=== PATIENT | male | born 1990 | race Caucasian/White ===

== ENCOUNTER 2019-01-17 21:01 | Emergency (ER) | payer SELFPAY ==
[~2019-01-17] VITALS: Ht 205.7 cm; Wt 99.8 kg
[2019-01-17] MEDS ORDERED: AUGMENTIN 875 MG TAB (AMOXICILLIN/CLAVULANATE) PO STA (21:16)
[2019-01-17] MEDS ORDERED: cefTRIAXone 1,000 MG/2.86 ml vial (IM ONLY) IM STA (21:16)
--- NOTE | 2019-01-17 21:27 | ED Lower Extremity ---
General Chief Complaint: Lower Extremity Stated Complaint: LEFT FOOT PAIN-INFECTED Source: patient, family History of Present Illness Date Seen by Provider: Jan 17, 2019 Time Seen by Provider: 21:04 Initial Comments 28-year-old male presenting with complaints of left heel pain. He was working under a family member's house and some sewage. This was yesterday. He was working on a broken sewage pipe. He did not feel like he stepped on anything or had anything happen to his foot did he was having some mild pain last night and there were some increased heat to the heel of his left foot. Today he's had increasing pain throughout the day and then tonight he has had some foul- smelling drainage from the left heel. There is some redness that is starting to spread up his heel. He denies having any fever or chills. He does not have any history of MRSA. Allergies and Home Medications Allergies Coded Allergies: No Known Drug Allergies (Unverified , 01/17/19) Home Medications Amoxicillin/Potassium Clav 1 Each Tablet, 1 EACH PO BID Prescribed by: DUKE CARPENTER on 01/17/192146 Ibuprofen 800 Mg Tablet, 800 MG PO Q8H PRN for PAIN Prescribed by: DUKE CARPENTER on 01/17/192146 Patient Home Medication List Home Medication List Reviewed: Yes Review of Systems Constitutional: see HPI; No chills, No fever, No malaise EENTM: no symptoms reported Respiratory: no symptoms reported Cardiovascular: no symptoms reported Gastrointestinal: no symptoms reported Genitourinary: no symptoms reported Musculoskeletal: other (pain to the left heel) Skin: see HPI, change in color Past Nvlwcjd-Mggnhb-Unhxsm Hx Past Med/Social Hx: Reviewed Nursing Past Med/Soc Hx Patient Social History Recent Foreign Travel: No Contact w/Someone Who Travel: No Immunizations Up To Date Tetanus Booster (TDap): Less than 5yrs Past Medical History Surgeries: No Asthma, Tuberculosis Cardiac: No Neurological: No Lung (Small Cell) Physical Exam Vital Signs Vital Signs - First Documented 01/17/19 01/17/19 21:15 22:23 Temp 97.2 Pulse 109 Resp 16 B/P (MAP) 148/99 (115) Pulse Ox 99 O2 Delivery Room Air Capillary Refill : Height, Weight, BMI Height: '" Weight: lbs. oz. kg; BMI Method: General Appearance: WD/WN, no apparent distress Cardiovascular: normal peripheral pulses Feet: left foot pain, left foot soft tissue tenderness, left foot swelling, left foot other (red tender papule to posterior lateral heel on left foot with redness streaking up the heel towards the ankle. There is small amount of serous fluid that can be expressed from the papule) Neurologic/Tendon: normal sensation, normal motor functions, normal tendon functions Neurologic/Psychiatric: alert, oriented x 3 Skin: normal color, warm/dry Procedures/Interventions I&D : Site: left lateral heel Blade Size: 15 Progress After obtaining informed consent the area was prepped with chlorhexidine. Then using a 27-gauge needle one percent plain lidocaine was injected to obtain anesthesia. The area was then incised with a 15 blade scalpel. There was a scant amount of serosanguineous fluid that was obtained and cultured. The culture swab was sent for culture. The wound was then cleaned and dressed with triple antibiotic and sterile dressing. He was counseled on follow-up and return precautions. Advised to keep the wound and foot elevated. Progress/Results/Core Measures Results/Orders My Orders Orders - DUKE CARPENTER MD Lidocaine 1% Inj 20 Ml (Xylocaine 1% Inj (01/17/19 21:30) Amoxicillin/Clavulanate Tablet (Augmenti (01/17/19 21:16) Ceftriaxone For Im Use (Rocephin For Im (01/17/19 21:16) Lidocaine 1% Inj 20 Ml (Xylocaine 1% Inj (01/17/19 21:30) Wound Culture (01/17/19 21:16) Medications Given in ED Current Medications Medications Dose Ordered Sig/Lucho Route Start Time Stop Time Status Last Admin Dose Admin Lidocaine HCl 2.1 ml ONCE ONCE INJ 01/17/19 21:30 18 21:31 DC 01/17/19 21:30 2.1 ML Lidocaine HCl 20 ml ONCE ONCE INJ 01/17/19 21:30 01/17/19 21:31 DC 01/17/19 21:31 20 ML Vital Signs/I&O 01/17/19 01/17/19 21:15 22:23 Temp 97.2 97.2 Pulse 109 109 Resp 16 16 B/P (MAP) 148/99 (115) 148/99 (115) Pulse Ox 99 O2 Delivery Room Air Progress Progress Note : Progress Note will give Rocephin IM for antibiotics. Start on Augmentin since the painful infected area started after having his feet in sewage yesterday. Will attempt an I & D of the area to see if fluid can be obtained for culture. Departure Impression Primary Impression: Abscess or cellulitis of heel Disposition: HOME, SELF-CARE Condition: Stable Departure-Patient Inst. Decision time for Depature: 22:10 Patient Instructions: Cellulitis (Skin Infection), Adult (DC), Wound Incision and Drainage (DC) Add. Discharge Instructions: Take antibiotics until gone. Follow up with [facility] provider or Provider of your choice to follow up about the wound and culture results. If worsens over the weekend return to the ER as you may need IV antibiotics. If you see redness going up your leg, Fever over 101 F, or having increasing pain and swelling to the foot instead of improving by Monday then return for evaluation. Try to elevate your foot to help with swelling and pain Use Ibuprofen 800 mg every 8 hours as needed for pain Use ice 20 to 30 minutes every few hours as needed to help with pain for next 24 hours. Then you may alternate with heat or just use heat to help with the area of infection. All discharge instructions reviewed with patient and/or family. Voiced understanding. Scripts Ibuprofen (Ibuprofen) 800 Mg Tablet 800 MG PO Q8H PRN for PAIN for 10 Days, #30 TAB 0 Refills Prov: DUKE CARPENTER MD 01/17/19 Amoxicillin/Potassium Clav (Augmentin 875-125 Tablet) 1 Each Tablet 1 EACH PO BID for 10 Days, #20 TAB 0 Refills Prov: DUKE CARPENTER MD 01/17/19 DUKE CARPENTER MD Jan 17, 2019 21:27
[2019-01-17] MEDS ORDERED: LIDOCAINE 1% INJ 20 ML 20 ML VIAL INJ ONE ×2 (21:30)
[2019-01-17] MEDS ORDERED: AMOX-358 PO (21:47)
[2019-01-17] MEDS ORDERED: IBUP-1780 PO (21:47)
[2019-01-17 22:23] VITALS: BP 148/99
== END 2019-01-17 22:18 | disposition home or self-care (01) ==
LOC: EDUNIT# 21:01 → ER FS 21:03
DX: L02.612 Cutaneous abscess of left foot (principal); L03.116 Cellulitis of left lower limb; J45.909 Unspecified asthma, uncomplicated
CPT/HCPCS: 87070; 87077; 87186; 87205

== ENCOUNTER 2019-09-01 10:49 | Emergency (ER) | payer SELFPAY ==
[~2019-09-01] VITALS: Ht 199 cm; Wt 105.9 kg
[~2019-09-01 10:49] MED LIST: AMOX-358 PO; IBUP-1780 PO
--- NOTE | 2019-09-01 11:02 | ED GU-Male ---
General Chief Complaint: Male Reproductive Stated Complaint: TESTICULAR PAIN Source: patient, other Exam Limitations: no limitations History of Present Illness Date Seen by Provider: Sep 01, 2019 Time Seen by Provider: 10:48 Initial Comments Patient presents to ER by private conveyance with chief complaint of left testicular pain swelling discoloration for the past 3 weeks. He's had some subjective fevers and chills. No discharge dysuria or dyspareunia. No diarrhea or constipation. No history of testicular problems. He is on Vraylar and lithium for bipolar followed by [facility] in [place]. He is not having any nausea. He did take some ibuprofen about 3 hours ago and gave him mild relief of pain. He rates it as a 9 out of 10. He is afraid he has testicular torsion. He has a history of herpes but no Allergies and Home Medications Allergies Coded Allergies: No Known Drug Allergies (Unverified , 01/17/19) Home Medications Amoxicillin/Potassium Clav 1 Each Tablet, 1 EACH PO BID Prescribed by: DUKE CARPENTER on 01/17/192146 Ibuprofen 800 Mg Tablet, 800 MG PO Q8H PRN for PAIN Prescribed by: DUKE CARPENTER on 01/17/192146 Patient Home Medication List Home Medication List Reviewed: Yes Review of Systems Review of Systems Constitutional: No chills, No diaphoresis EENTM: No ear discharge, No ear pain Respiratory: No cough, No short of breath Cardiovascular: No chest pain, No edema Gastrointestinal: No abdominal pain, No constipation, No diarrhea Genitourinary: see HPI All Other Systemes Reviewed Negative Unless Noted: Yes Past Mwvekii-Lrrxeg-Suprwv Hx Patient Social History Alcohol Use: Denies Use Recreational Drug Use: No Immunizations Up To Date Tetanus Booster (TDap): Less than 5yrs Past Medical History Surgeries: No Asthma, Tuberculosis Cardiac: No Neurological: No Lung Physical Exam Vital Signs Capillary Refill : Height, Weight, BMI Height: 6'9.00" Weight: 220lbs. oz. 99.311224is; BMI Method:Stated General Appearance: WD/WN, mild distress HEENT: PERRL/EOMI, pharynx normal Cardiovascular: normal peripheral pulses, regular rate, rhythm Respiratory: no respiratory distress, no accessory muscle use Genital/Rectal: other (normal penis exam without pain or discharge. Left ST slightly swollen, erythematous without tumor nodule. Right testes unremarkable. Inguinal canals are unremarkable.) Neurologic/Psychiatric: alert, normal mood/affect Skin: normal color, warm/dry Progress/Results/Core Measures Suspected Sepsis SIRS Temperature: Pulse: Respiratory Rate: Blood Pressure / Mean: Results/Orders Lab Results Laboratory Tests Test 09/01/19 11:00 Range/Units Urine Color YELLOW Urine Clarity CLEAR Urine pH 6.5 5-9 Urine Specific [place] 1.020 1.016-1.022 Urine Protein NEGATIVE NEGATIVE Urine Glucose (UA) NEGATIVE NEGATIVE Urine Ketones NEGATIVE NEGATIVE Urine Nitrite NEGATIVE NEGATIVE Urine Bilirubin NEGATIVE NEGATIVE Urine Urobilinogen 0.2 < = 1.0 MG/DL Urine Leukocyte Esterase 1+ H NEGATIVE Urine RBC (Auto) TRACE H NEGATIVE Urine RBC RARE /HPF Urine WBC 25-50 H /HPF Urine Crystals NONE /LPF Urine Bacteria TRACE /HPF Urine Casts NONE /LPF Urine Mucus MODERATE H /LPF Urine Culture Indicated YES My Orders Orders - DIANNA CROCKER Ua Culture If Indicated (09/01/19 11:02) Neis Robert Dna Urine Test (09/01/19 11:02) Chlamydia Trachomatis Urine (09/01/19 11:02) Urine Culture (09/01/19 11:00) Ceftriaxone For Im Use (Rocephin For Im (09/01/19 11:30) Azithromycin Tablet (Zithromax Tablet) (09/01/19 11:30) Lidocaine 1% Inj 20 Ml (Xylocaine 1% Inj (09/01/19 11:30) Ketorolac Injection (Toradol Injection) (09/01/19 11:30) Vital Signs/I&O Capillary Refill : Progress Note : Time: 11:15 Progress Note At 3 weeks a testicular torsion is less likely. Infection versus tumor more likely. We do not have ultrasound [facility]. The nearest ultrasound is in [facility]. We have offered that. The patient says he would prefer to wait till tomorrow and this is acceptable. We'll set him up outpatient and he can follow-up with Deana Mcclure, primary care at [facility]. Plan to give him Rocephin and azithromycin and put him out on doxycycline. Toradol for pain. Departure Impression Primary Impression: Orchitis of left testicle Disposition: 01 HOME, SELF-CARE Condition: Stable Departure-Patient Inst. Decision time for Depature: 11:20 Referrals: NO,LOCAL PHYSICIAN (PCP/Family) Primary Care Physician Patient Instructions: Epididymitis Add. Discharge Instructions: Heat and elevation may be helpful. Tylenol 1000 mg every 8 hours as needed for pain. Ibuprofen 800 mg every 8 hours as needed for pain. Hydrocodone one tablet every 6 hours as needed for pain. Doxycycline 1 tablet with a meal twice a day for the next 10 days. Follow-up with an outpatient ultrasound tomorrow. Follow-up with your primary care doctor by calling for results this week. All discharge instructions reviewed with patient and/or family. Voiced understanding. Scripts Doxycycline Hyclate (Doxycycline Hyclate) 100 Mg Tablet 100 MG PO BID for 10 Days, #20 TAB 0 Refills Prov: DIANNA CROCKER 09/01/19 Hydrocodone Bit/Acetaminophen (Hydrocodone/Acetaminophen 5/325mg Tablet) 1 Tab Tab 1 EACH PO Q4-6HR PRN for PAIN-MODERATE MDD 10 for 3 Days, #14 TAB 0 Refills Prov: DIANNA CROCKER 09/01/19 Work/School Note: Work Release Form Date Seen in the Emergency Department: Sep 01, 2019 Return to Work: Sep 03, 2019 Restrictions: No Restrictions Copy Copies To 1: MARJORIE LEE TITUS J Sep 01, 2019 11:02 POS
[2019-09-01 11:14] LABS: BACTERIA,URINE TRACE /HPF; BILIRUBIN,URINE NEGATIVE (NEGATIVE); CLARITY,URINE CLEAR; COLOR,URINE YELLOW; GLUCOSE, URINE (UA) NEGATIVE (NEGATIVE); KETONES,URINE NEGATIVE (NEGATIVE); LEUKOCYTE ESTERASE ,URINE 1+ (NEGATIVE); NITRITE,URINE NEGATIVE (NEGATIVE); PH,URINE 6.5 (5-9); PROTEIN,URINE NEGATIVE (NEGATIVE); RBC,URINE RARE /HPF; WBC,URINE 25-50 /HPF
[2019-09-01] MEDS ORDERED: DOXY100T2 PO (11:22)
[2019-09-01] MEDS ORDERED: ACHD5005 PO (11:22)
[2019-09-01 11:27] VITALS: BP 162/90
[2019-09-01] MEDS ORDERED: cefTRIAXone 500 MG/1.43 ML vial (IM ONLY) IM ONE ×2 (11:30→11:45)
[2019-09-01] MEDS ORDERED: LIDOCAINE 1% INJ 20 ML 20 ML VIAL INJ ONE ×2 (11:30→11:45)
[2019-09-01] MEDS ORDERED: KETOROLAC 60 MG/2 ML VIAL IM ONE ×2 (11:30→11:45)
[2019-09-01] MEDS ORDERED: AZITHROMYCIN 250 MG TAB (ZITHROMAX) PO ONE ×2 (11:30→11:36)
[2019-09-01] MEDS ORDERED: cefTRIAXone 500 MG/1.43 ML vial (IM ONLY) ONE (11:36)
[2019-09-01] MEDS ORDERED: LIDOCAINE 1% INJ 20 ML 20 ML VIAL ONE (11:36)
[2019-09-02] MEDS ORDERED: AZITHROMYCIN 250 MG TAB (ZITHROMAX) PO SCH (09:00)
--- OUTSIDE RECORDS SUMMARY | 2019-09-26 07:05 | XMS REPORT | Continuity of Care Document ---
Author Organization Unknown Address Unknown Phone Unavailable Allergies Active Description Code Type Severity Reaction Onset Reported/Identified Relationship to Patient Clinical Status Yes No Known Drug Allergies [id number] Drug Allergy Unknown N/A 01/17/2019 Medications There is no data. Problems Date Dx Coded Attending Type Code Diagnosis Diagnosed By 01/17/2019 DUKE CARPENTER MD, Ot J45.9 09 UNSPECIFIED ASTHMA, UNCOMPLICATED 01/17/2019 DUKE CARPENTER MD, Ot L02.6 12 CUTANEOUS ABSCESS OF LEFT FOOT 01/17/2019 DUKE CARPENTER MD, Ot L03.1 16 CELLULITIS OF LEFT LOWER LIMB 01/17/2019 DUKE CARPENTER MD, Ot M79.6 72 PAIN IN LEFT FOOT Procedures There is no data. Results Test Result Range TSH w/ FREE T4 - 01/03/19 16:47 TSH 0.96 mIU/L 0.40-4.50 T4, FREE 0.9 ng/dL 0.8-1.8 CMP - 01/03/19 16:47 GLUCOSE 87 mg/dL 65-99 UREA NITROGEN (BUN) 13 mg/dL 7-25 CREATININE 0.84 mg/dL 0.60-1.35 eGFR NON-AFR. TURK[place] 118 mL/min/1.73m2 > OR = 60 eGFR 137 mL/min/1.73m2 > OR = 60 BUN/CREATININE RATIO NOT APPLICABLE (calc) 6-22 SODIUM 140 mmol/L 135-146 POTASSIUM 5.0 mmol/L 3.5-5.3 CHLORIDE 105 mmol/L 98-110 CARBON DIOXIDE 28 mmol/L 20-32 CALCIUM 9.4 mg/dL 8.6-10.3 PROTEIN, TOTAL 6.8 g/dL 6.1-8.1 ALBUMIN 4.4 g/dL 3.6-5.1 GLOBULIN 2.4 g/dL (calc) 1.9-3.7 ALBUMIN/GLOBULIN RATIO 1.8 (calc) 1.0-2. 5 BILIRUBIN, TOTAL 0.4 mg/dL 0.2-1.2 ALKALINE PHOSPHATASE 70 U/L 40-115 AST 15 U/L 10-40 ALT 12 U/L 9-46 Gram stain microscopy - 01/17/19 22:00 Bacteria identification in wound by cult ure - 01/17/19 22:00 Bacteria identification in wound by culture [id number] NR FREE TEXT EXTERNAL SUSCEPTIBILITY REPORT RCD 01/20 12:05 NRG QUANTITY OF GROWTH Many NRG RML Sensitivity Panel - 01/17/19 22:00 Gentamicin susceptibility test by minimum inhibitory c oncentration <= NRG Trimethoprim/sulfamethoxazole susceptibi lity test by minimum inhibitoryconcentration <= NRG Levofloxacin susceptibility test by minimum inhibitory concentration <= NRG Ceftriaxone susceptibility test by minimum inhibitory concentration <= NRG Piperacillin/tazobactam susceptibility t est by minimum inhibitory concentration = NRG Ciprofloxacin susceptibility test by minimum inhibitor y concentration 1 NRG Amoxicillin and clavulanate potassium susc CHUCK R NRG HSV 1/2 IGG,TYPE SPECIFIC AB HERPESELECT - 02/11/19 12:18 HSV 1 IGG, TYPE SPECIFIC AB 45.00 index NRG HSV 2 IGG, TYPE SPECIFIC AB 7.42 index N RG HSV 1/2 ANTIBODY IgM - 02/11/19 12:18 HSV 1 IGM SCREEN NEGATIVE NRG HSV 2 IGM SCREEN NEGATIVE NRG CMP - 04/25/19 14:20 GLUCOSE 63 mg/dL 65-99 UREA NITROGEN (BUN) 16 mg/dL 7-25 CREATININE 0.98 mg/dL 0.60-1.35 eGFR NON-AFR. TURKISH 103 mL/min/1.73m2 > OR = 60 eGFR 119 mL/min/1.73m2 > OR = 60 BUN/CREATININE RATIO NOT APPLICABLE (calc) 6-22 SODIUM 142 mmol/L 135-146 POTASSIUM 4.4 mmol/L 3.5-5.3 CHLORIDE 104 mmol/L 98-110 CARBON DIOXIDE 32 mmol/L 20-32 CALCIUM 9.9 mg/dL 8.6-10.3 PROTEIN, TOTAL 7.0 g/dL 6.1-8.1 ALBUMIN 4.4 g/dL 3.6-5.1 GLOBULIN 2.6 g/dL (calc) 1.9-3.7 ALBUMIN/GLOBULIN RATIO 1.7 (calc) 1.0-2. 5 BILIRUBIN, TOTAL 0.3 mg/dL 0.2-1.2 ALKALINE PHOSPHATASE 74 U/L 40-115 AST 17 U/L 10-40 ALT 17 U/L 9-46 TSH - 04/25/19 14:20 TSH 2.43 mIU/L 0.40-4.50 LITHIUM (ESKALITH(R)), SERUM - 04/25/19 14:20 LITHIUM <0.3 mmol/L 0.6-1.2 CBC - 05/29/19 16:14 WHITE BLOOD CELL COUNT 10.6 Thousand/uL 3.8-10.8 RED BLOOD CELL COUNT 4.83 Million/uL 4.2 0-5.80 HEMOGLOBIN 15.3 g/dL 13.2-17.1 HEMATOCRIT 44.6 % 38.5-50.0 MCV 92.3 fL 80.0-100.0 MCH 31.7 pg 27.0-33.0 MCHC 34.3 g/dL 32.0-36.0 RDW 12.1 % 11.0-15.0 PLATELET COUNT 326 Thousand/uL 140-400 MPV 10.2 fL 7.5-12.5 ABSOLUTE NEUTROPHILS 7590 cells/uL 1500- 7800 ABSOLUTE LYMPHOCYTES 2067 cells/uL 850-3 900 ABSOLUTE MONOCYTES 583 cells/uL 200-950 ABSOLUTE EOSINOPHILS 307 cells/uL 15-500 ABSOLUTE BASOPHILS 53 cells/uL 0-200 NEUTROPHILS 71.6 % NRG LYMPHOCYTES 19.5 % NRG MONOCYTES 5.5 % NRG EOSINOPHILS 2.9 % NRG BASOPHILS 0.5 % NRG Complete urinalysis with reflex to cultu re - 09/01/19 11:00 Urine color determination YELLOW NRG Urine clarity determination CLEAR NR G Urine pH measurement by test strip 6.5 5-9 Specific gravity of urine by test strip 1.020 1.016-1.022 Urine protein assay by test strip, semi-quantitative NEGATIVE NEGATIVE Urine glucose detection by automated test strip NE GATIVE NEGATIVE Erythrocytes detection in urine sediment by light micr oscopy TRACE NEGATIVE Urine ketones detection by automated test strip NE GATIVE NEGATIVE Urine nitrite detection by test strip NEGATIVE NEGATIVE Urine total bilirubin detection by test strip NEGA TIVE NEGATIVE Urine urobilinogen measurement by automated test strip (mass/volume) 0.2 mg/dL < = 1.0 Urine leukocyte esterase detection by dipstick 1+ NEGATIVE Automated urine sediment erythrocyte cou nt by microscopy (number/high power field) RARE NRG Automated urine sediment leukocyte count by microscopy (number/high power field) [HPF] NRG Bacteria detection in urine sediment by light microsco py TRACE NRG Crystals detection in urine sediment by light microsco py NONE NRG Casts detection in urine sediment by light microscopy NONE NRG Mucus detection in urine sediment by light microscopy MODERATE NRG Complete urinalysis with reflex to culture YES NRG Bacterial urine culture - 09/01/19 11:00 Bacterial urine culture NG NRG Chlamydia DNA amp probe, urine - 9 11:00 Chlamydia DNA amp probe, urine Detected Not Detected Urine Neisseria gonorrhoeae DNA assay - 09/01/19 11:00 Gonorrhea amp DNA-urine Not Detected No t Detected Encounters ACCT No. Visit Date/Time Discharge Status Pt. 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
== END 2019-09-01 11:30 | disposition home or self-care (01) ==
LOC: EDUNIT# 10:49 → ER FS 10:51
DX: N45.2 Orchitis (principal); J45.909 Unspecified asthma, uncomplicated
CPT/HCPCS: 36415; 81000; 87088; 87491; 87591; 96372; 99283

== ENCOUNTER 2021-08-28 20:23 | Emergency (ER) | payer SELFPAY ==
[~2021-08-28 20:23] MED LIST changes: +ACHD5005 PO; +DOXY100T2 PO
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
--- NOTE | 2021-08-28 20:41 | ED Lower Extremity ---
General Stated Complaint: FALL 8-10 FT OFF OF LADDER/L LEG PAIN Source: patient, spouse Exam Limitations: no limitations History of Present Illness Date Seen by Provider: Aug 28, 2021 Time Seen by Provider: 20:24 Initial Comments Patient ER with his significant other chief complaint that this morning around 8 he was cutting a tree had a kick back with a chainsaw while up on the ladder and so he stepped off the ladder lost his balance and has a came down about 8 feet he says he twisted his left knee. He is having pain and inability to bear weight on it immediately afterwards. No previous injury, surgery or scopes to this knee. He is having a little tingling in his ankle but no pain in his ankle or foot. He is unable to bear weight on it. He took Tylenol immediately after about 4 hours later with minimal relief. He says the worst pain of his life. Not on blood thinners. He denies falling to the ground striking his head nor loss of consciousness. No nausea or vomiting Allergies and Home Medications Allergies Coded Allergies: No Known Drug Allergies (Unverified , 01/17/19) Patient Home Medication List Home Medication List Reviewed: Yes Amoxicillin/Potassium Clav (Augmentin 875-125 Tablet) 1 Each Tablet, 1 EACH PO BID Prescribed by: DUKE CARPENTER on 01/17/192146 Doxycycline Hyclate (Doxycycline Hyclate) 100 Mg Tablet, 100 MG PO BID Prescribed by: DIANNA CROCKER on 09/01/191121 Hydrocodone Bit/Acetaminophen (Lortab 5 Mg Tablet) 1 Tab Tab, 1 EACH PO Q4-6HR PRN for PAIN-MODERATE Prescribed by: DIANNA CROCKER on 09/01/19 112 Ibuprofen (Ibuprofen) 800 Mg Tablet, 800 MG PO Q8H PRN for PAIN Prescribed by: DUKE CARPENTER on 01/17/192146 Review of Systems Constitutional: No chills, No diaphoresis EENTM: No ear discharge, No ear pain Respiratory: No cough, No short of breath Cardiovascular: No chest pain, No palpitations Gastrointestinal: No abdominal pain, No nausea Genitourinary: No discharge, No dysuria Musculoskeletal: see HPI; No back pain; joint pain All Other Systems Reviewed Negative Unless Noted: Yes Past Jxectvm-Hdffrk-Ljfhce Hx Patient Social History Tobacco Use?: No Use of E-Cig and/or Vaping dev: Yes E-Cig or Vaping type used: Nicotine Substance use?: Yes Substance type: Methamphetamine Immunizations Up To Date Tetanus Booster (TDap): Less than 5yrs Seasonal Allergies Seasonal Allergies: No Past Medical History Surgeries: No Respiratory: Yes (collapsed lung) Asthma, Tuberculosis Cardiac: No Neurological: No Genitourinary: No Gastrointestinal: No Musculoskeletal: No Endocrine: No HEENT: No Cancer: No Lung Psychosocial: No Integumentary: No Blood Disorders: No Physical Exam Vital Signs Vital Signs - First Documented 08/28/21 20:30 Temp 36.3 Pulse 88 Resp 20 B/P (MAP) 142/66 (91) Pulse Ox 100 O2 Delivery Room Air Capillary Refill : Height, Weight, BMI Height: 6'9.00" Weight: 220lbs. oz. 99.253437tg; 26.00 BMI Method:Stated General Appearance: WD/WN, mild distress HEENT: PERRL/EOMI, pharynx normal Neck: full range of motion, normal inspection Cardiovascular: normal peripheral pulses, regular rate, rhythm Respiratory: no respiratory distress, no accessory muscle use Hips: bilateral hip non-tender, bilateral hip normal inspection, bilateral hip normal range of motion, bilateral hip no evidence of injury Legs: bilateral leg non-tender, bilateral leg normal inspection, bilateral leg normal range of motion, bilateral leg no evidence of injury Knees: right knee non-tender, right knee normal inspection, right knee normal range of motion, right knee no evidence of injury; left knee bone tenderness (Anterior lateral and medial tibial plateau tender to palpation), left knee ecchymosis, left knee joint effusion (Mild), left knee soft tissue tenderness, left knee swelling (moderate) Ankles: bilateral ankle non-tender, bilateral ankle normal inspection, bilateral ankle normal range of motion, bilateral ankle no evidence of injury Feet: bilateral foot non-tender, bilateral foot normal inspection, bilateral foot normal range of motion, bilateral foot no evidence of injury Neurologic/Tendon: normal sensation, normal motor functions, normal tendon functions, responds to pain Neurologic/Psychiatric: alert, normal mood/affect, oriented x 3 Progress/Results/Core Measures Results/Orders My Orders Orders - DIANNA CROCKER Ketorolac Injection (Toradol Injection) (08/28/21 20:45) Knee, Left, 3 Views (08/28/21 20:34) Vital Signs/I&O 08/28/21 20:30 Temp 36.3 Pulse 88 Resp 20 B/P (MAP) 142/66 (91) Pulse Ox 100 O2 Delivery Room Air Progress Progress Note : Time: 20:41 Progress Note Ice, Toradol and 3 views of the left knee Diagnostic Imaging Diagonstic Imaging: Xray Plain Films/CT/US/NM/MRI: knee (l) Comments NAME: LONNIE RAO [facility] REC#: [id number] PT STATUS: REG ER : 1990 PHYSICIAN: DIANNA CROCKER MD ADMIT DATE: 08/28/21/ER Draft Date of Exam:08/28/21 KNEE, LEFT, 3 VIEWS INDICATION: Left knee pain, fell off ladder. FINDINGS: Three views of the left knee show no fracture, dislocation or other acute abnormalities. IMPRESSION: Unremarkable left knee. Dictated on workstation # [id number] Dict: 08/28/212055 Trans: 08/28/212056 PJE [id number] Interpreted by: MONROE MIRAMONTES MD Electronically signed by: Reviewed: Reviewed by Me Departure Impression Primary Impression: Sprain of knee Qualified Codes: S83.92XA - Sprain of unspecified site of left knee, initial encounter Disposition: 01 HOME, SELF-CARE Condition: Stable Departure-Patient Inst. Decision time for Depature: 21:00 Referrals: NO,LOCAL PHYSICIAN (PCP) Primary Care Physician BARB DODGE MD Patient Instructions: Knee Sprain (DC) Add. Discharge Instructions: Stay off your knee and use the crutches to bear only toe-touch weight for the first week. Keep your knee elevated above the level of your heart while at rest to reduce swelling and pain. Keep Elver wrap or similar elastic bandage around the knee to reduce swelling and pain. Ice for 20 minutes on every 2 hours while awake for the first 2 to 3 days. After that you can use topical creams such as icy hot and Biofreeze. Heat can be applied for pain relief after the first 2 to 3 days. Tylenol 1000 mg every 8 hours as necessary for pain. Ibuprofen 800 mg every 8 hours as necessary for pain. Call Dr. Dodge, orthopedic surgery and plan to follow-up next week for reexamination of your knee to determine which ligaments are injured. Work/School Note: Work Release Form Date Seen in the Emergency Department: Aug 28, 2021 Return to Work: Aug 30, 2021 Restrictions: Need Release from Doctor Other Restrictions Listed Below: Crutches and minimal weightbearing left knee until 09/04/21. DIANNA CROCKER Aug 28, 2021 20:41
[2021-08-28] MEDS ORDERED: KETOROLAC 30 MG/ML VIAL IVP ONE (20:45)
--- NOTE | 2021-08-28 20:57 | Diagnostic Imaging Report ---
INDICATION: Left knee pain, fell off ladder. FINDINGS: Three views of the left knee show no fracture, dislocation or other acute abnormalities. IMPRESSION: Unremarkable left knee. Dictated by: Dictated on workstation # [id number]
[2021-08-28 21:30] VITALS: BP 138/62
== END 2021-08-28 21:30 | disposition home or self-care (01) ==
LOC: EDUNIT# 20:23 → ER 20:25
DX: S83.92XA Sprain of unspecified site of left knee, initial encounter (principal); J45.909 Unspecified asthma, uncomplicated; X50.1XXA Overexertion from prolonged static or awkward postures, initial encounter
CPT/HCPCS: 73562

== ENCOUNTER 2022-06-04 13:34 | Emergency (ER) | payer MEDICAID ==
[~2022-06-04] VITALS: Ht 200.7 cm; Wt 113.4 kg
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
[2022-06-04] MEDS ORDERED: FAMOTIDINE 20MG/2ML IV (PEPCID) IV STA (13:44)
[2022-06-04] MEDS ORDERED: ANTACID SUSP 30 ML UDC (MYLANTA) PO ONE (13:45)
[2022-06-04] MEDS ORDERED: ASPIRIN 81 MG CHEW (CHILDREN'S ASA) PO ONE (13:45)
[2022-06-04 13:48] LABS: BASOPHILS % (AUTO) 0 % (0-10); EOSINOPHILS # (AUTO) 0.6 10^3/uL (0.0-0.3); EOSINOPHILS % (AUTO) 7 % (0-10); HEMATOCRIT 42 % (40-54); HEMOGLOBIN 14.3 g/dL (13.3-17.7); LYMPHOCYTES # (AUTO) 2.2 10^3/uL (1.0-4.0); LYMPHOCYTES % (AUTO) 24 % (12-44); MEAN CORPUSCULAR HEMOGLOBIN 31 pg (25-34); MEAN CORPUSCULAR HGB CONC 34 g/dL (32-36); MEAN CORPUSCULAR VOLUME 90 fL (80-99); MEAN PLATELET VOLUME 9.6 fL (9.0-12.2); MONOCYTES # (AUTO) 0.7 10^3/uL (0.0-1.0); MONOCYTES % (AUTO) 7 % (0-12); NEUTROPHILS # (AUTO) 5.6 10^3/uL (1.8-7.8); NEUTROPHILS % (AUTO) 62 % (42-75); PLATELET COUNT 354 10^3/uL (130-400); WHITE BLOOD COUNT 9.2 10^3/uL (4.3-11.0)
[2022-06-04 13:57] LABS: INR 0.8 (0.8-1.4); PROTHROMBIN TIME PATIENT 11.8 SEC (12.2-14.7)
[2022-06-04 14:14] LABS: ALANINE AMINOTRANSFERASE 47 U/L (0-55); ALBUMIN 4.1 GM/DL (3.2-4.5); ALKALINE PHOSPHATASE 86 U/L (40-136); BILIRUBIN,TOTAL < 0.2 MG/DL (0.1-1.0); BUN/CREATININE RATIO 17; CALCIUM 8.9 MG/DL (8.5-10.1); CARBON DIOXIDE 26 MMOL/L (21-32); CHLORIDE 103 MMOL/L (98-107); CREATININE SERUM 0.76 MG/DL (0.60-1.30); GFR ESTIMATED 122; GLUCOSE 95 MG/DL (70-105); POTASSIUM 4.2 MMOL/L (3.6-5.0); SODIUM 138 MMOL/L (135-145); TOTAL PROTEIN 6.7 GM/DL (6.4-8.2)
--- NOTE | 2022-06-04 14:15 | Diagnostic Imaging Report ---
EXAMINATION: Chest 1 view HISTORY: Chest pain. COMPARISON: None available. FINDINGS: The lung volumes are normal. No focal consolidation is seen. No large pleural effusion or pneumothorax is seen. The cardiomediastinal silhouette is normal in size and contour. No acute osseous abnormality is seen. IMPRESSION: 1. No acute pleuroparenchymal process. Dictated by: Dictated on workstation # [id number]
[2022-06-04 15:19] LABS: AMPHETAMINE SCREEN, URINE NEGATIVE (NEGATIVE); BARBITURATE SCREEN URINE NEGATIVE (NEGATIVE); BENZODIAZEPINES SCREEN URINE NEGATIVE (NEGATIVE); CANNABINOID SCREEN, URINE NEGATIVE (NEGATIVE); COCAINE SCREEN URINE NEGATIVE (NEGATIVE); METHADONE STAT NEGATIVE (NEGATIVE); OPIATE SCREEN URINE NEGATIVE (NEGATIVE); OXYCODONE STAT NEGATIVE (NEGATIVE); PROPOXYPHENE STAT NEGATIVE (NEGATIVE); TRICYCLIC ANTIDEPRESSANTS SCRE NEGATIVE (NEGATIVE)
[2022-06-04 16:38] VITALS: BP 126/71
== END 2022-06-04 16:43 | disposition home or self-care (01) ==
LOC: EDUNIT# 13:34 → ER FS 13:36
DX: K21.9 Gastro-esophageal reflux disease without esophagitis (principal); Z28.310 Unvaccinated for COVID-19
CPT/HCPCS: 36415; 71045; 80053; 80306; 83735; 83880; 84484; 85025; 85379; 85610; 85730; 93005; 93041; 99284; G0480; 80320